=== PATIENT | female | born 1945 | race Caucasian/White ===

== ENCOUNTER 2016-08-11 19:53 | Emergency (ER) | payer MEDICARE, OTHER ==
[2016-08-11] MEDS ORDERED: DIPHENHYDRAMINE 50 MG/ML VIAL ONE (20:33)
[2016-08-11] MEDS ORDERED: METHYLPRED SOD SUCC 125 MG/2 ML VIAL ONE (20:34)
[2016-08-11] MEDS ORDERED: FAMOTIDINE 20 MG INJ ONE (20:34)
== END 2016-08-11 21:51 | disposition home or self-care (01) ==
LOC: ER 19:53
CPT/HCPCS: 96374 ×2; 96375 ×2; 99283; J2930